=== PATIENT | male | born 1975 ===

== ENCOUNTER 2018-03-04 23:50 | Inpatient (IN) | payer BC, OTHER ==
--- NOTE | 2018-03-05 00:02 | ED PDOC ---
Psych Transfer Clearance - Clearance Statement Clearance Statement: Reviewed vital signs, lab results and transfer papers. Patient clinically stable for psychiatric admission.
[2018-03-05 00:17] VITALS: O2SAT 97
[2018-03-05] MEDS ORDERED: Magnesium Hydroxide Susp 30 ml UD PO PRN (00:27)
[2018-03-05] MEDS ORDERED: DiphenhydrAMINE 50 mg/ml Inj IM PRN (00:27)
[2018-03-05] MEDS ORDERED: Alum-Mag Hydrox-Simethicone Susp (30 mL) PO PRN (00:27)
--- NOTE | 2018-03-05 00:52 | PCM.BM ---
<MildredguevaraGiannivarun Diaz - Last Filed: 03/05/18 00:50> Treatment Plan Problems - Problems identified on initial assessmt Hopelessness/Helplessness Date Initiated: 03/05/18 Time Initiated: 00:51 Assessment reference: NA Status: Active Defensive Coping Date Initiated: 03/05/18 Time Initiated: 00:51 Assessment reference: NA Status: Active Treatment assets and liabiliti Patient Assests: cooperative, ADL independent, physically healthy, negotiates basic needs, cognitively intact Patient Liabilities: relationship conflicts, substance abuse, language/speech - Milieu Protocol Maintain good personal hygiene: daily Encourage regular showers, daily Remind patient to perform daily oral care, daily Assist patient to perform ADL's Conduct patient checks and document Observation sheet: Q15 minutes Maintain personal safety: every shift Educate patient to report safety concerns to staff, every shift Monitor environment for contraband/sharps Medication safety: Monitor for expected outcome, potential side effects: every shift, Assess barriers to learning: every shift, Assess readiness for medication education: every shift <MarioAdriana - Last Filed: 03/05/18 15:34> Treatment assets and liabiliti Patient Assests: adapts well, cooperative, motivated, resourceful, self-reliant , ADL independent, physically healthy, good support system, negotiates basic needs, cognitively intact Patient Liabilities: relationship conflicts, substance abuse, language/speech, other (anger management issues/poor impulse control) Family Contact Family involvement: Family/SO is involved Family contact: Patient agrees to contact, Family has been contacted by patient , Telephone contact initiated by staff Family contact name: Louann(aunt)([phone]) Family contacted how many times per week?: 2 Family contact comment: Straddle Truck Operator placed call to pts aunt to provide information regarding visitation hours and notify family that a letter for pts employer confirming pts current hospitalization will be elft at the nurses station this evening as requested by patient. Straddle Truck Operator provided general information regarding nature of tx provided on 3NP and assured family that policy writer typist will continue providing updates through-out pts stabilization. Pts aunt expressed understanding of the above and reported that both her and pts mother will be brining pt clothing later today. - Goals for Treatment Patient goals for treatment: Patient to continue stabilization on 3NP through medication management and group/supportive therapy to address sxs of depression and eliminate SI. Patient to be encouraged to attend groups regularly to promote self-awareness, sobriety, compliance, and improve insight, anger management, coping skills and self-esteem. Patient to be provided with referral for appropriate level of aftercare to reduce risk of future hospitalizations and ensure safety in the community. Discharge/Continuing Care - Education Needs Education Needs: Family Medication, Family Diagnosis/Disease Process, Family Coping Skills, Family Community resources, Family Aftercare Safety Plan, Patient Medication, Patient Diagnosis/Disease Process, Patient Coping Skills, Patient Anger Management skills, Patient Community resources, Patient Aftercare Safety Plan - Discharge Discharge Criteria: Tolerates medication w/o severe side effects, Free of Suicidal thoughts, Free of agitation, Normal sleep pattern, Ability to care for self, Reduction of target symptoms Discharge to:: Home, With Family, Other (outpatient mental health/substance abuse services) - Treatment Team Participation Patient/Family/SO Statement: 03/05/18 15:39 Patient attended tx team and was able to participate in discussion regarding precursors to hospitalization and tx goals. Pt. reported long hx of poor impulse control. Pt. reported hx of destroying property when angry but denied aggression/violence towards others. Pt. identified recent discord with girlfriend resulting in threat to end long-term relationship as primary stressor leading to admission. Pt. reported being abandoned by both parents at the age of 4 and being raised by grandmother and cousins, resulting in abandonment and anger management issues. Pt. reported childhood hx of outpatient therapy secondary to behavioral disturbances. Pt. reported social ETOH use and recreational cocaine use with recent increase for means of self- medication. Pt. appeared to be minimizing substance abuse. Pt. reported having family/social supports and stable employment. Pt. presented as depressed and anxious and expressed ongoing sleep disturbances. Pt. reported hx of/recent suicidal threats but denied hx of real ideations, attempts or self-injurious behaviors. Psychoeducation regarding nature of tx provided on 3NP provided. Pt. agreeable to medication management and group/supportive therapy. Pt. provided consent for policy writer typist to contact aundavid (Louann [phone]) to provide visitation hours and requested that a letter be provided confirming current hospitalization for employer. Discussed with Family/SO: Yes Was Patient/Family/SO present at Treatment Team Meeting: Yes <Humphrey Ludwig - Last Filed: 03/07/18 14:04> - Diagnosis (1) Depression Status: Acute Interventions: psychotherapy, pharmacotherapy 03/07/18 14:03
[2018-03-05 09:18] LABS: T4 6.85 ug/dl (5.5-11.0)
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
--- NOTE | 2018-03-05 20:22 | CP.PCM.CON ---
History of Present Illness - History of Present Illness History of Present Illness: '42 yo male with no significant PMH admitted to psyche unit because of depression Review of Systems - Review of Systems All systems: reviewed and no additional remarkable complaints except (aside from those mentioned above, 12 point system review were negative by me) Past Patient History - Tetanus Immunizations Tetanus Immunization: Unknown - Past Social History Smoking Status: Light Smoker < 10 Cigarettes Daily Alcohol: Social - CARDIAC Hx Cardiac Disorders: No - PULMONARY Hx Tuberculosis: No - NEUROLOGICAL Hx Neurological Disorder: No - HEENT Hx HEENT Problems: No - RENAL Hx Chronic Kidney Disease: No - ENDOCRINE/METABOLIC Hx Endocrine Disorders: No - HEMATOLOGICAL/ONCOLOGICAL Hx Hepatitis A: No Hx Hepatitis B: No Hx Hepatitis C: No Hx Human Immunodeficiency Virus (HIV): No - INTEGUMENTARY Hx Dermatological Problems: No - MUSCULOSKELETAL/RHEUMATOLOGICAL Hx Musculoskeletal Disorders: No - GASTROINTESTINAL Hx Gastrointestinal Disorders: No - GENITOURINARY/GYNECOLOGICAL Hx Genitourinary Disorders: No - PSYCHIATRIC Hx Depression: Yes Hx Substance Use: Yes - SURGICAL HISTORY Hx Surgeries: No - ANESTHESIA Hx Anesthesia: No Hx Anesthesia Reactions: No Hx Malignant Hyperthermia: No Has any member of the family had a problem w/ anesthesia?: No Meds Allergies/Adverse Reactions: Allergies Allergy/AdvReac Type Severity Reaction Status Date / Time No Known Allergies Allergy Verified 03/04/18 23:56 - Medications Medications: Current Medications Acetaminophen (Tylenol 325mg Tab) 650 mg PO Q4 PRN PRN Reason: pain level 4-7 Al Hydrox/Mg Hydrox/Simethicone (Maalox Plus 30 Ml) 30 ml PO Q4 PRN PRN Reason: Dyspepsia Aripiprazole (Abilify) 5 mg PO DAILY KRISTYN Last Admin: 03/05/18 16:50 Dose: 5 mg Diphenhydramine HCl (Benadryl) 50 mg IM Q6 PRN PRN Reason: Extrapyramidal S/S Unable PO Diphenhydramine HCl (Benadryl) 50 mg PO Q6 PRN PRN Reason: Extrapyramidal Symptoms Diphenhydramine HCl (Benadryl) 50 mg PO HS PRN PRN Reason: Sleep Haloperidol (Haldol) 5 mg PO Q4 PRN PRN Reason: Agitation Haloperidol Lactate (Haldol) 5 mg IM Q4 PRN PRN Reason: Agitation, Unable to Take PO Hydroxyzine Pamoate (Vistaril) 50 mg PO Q8 PRN PRN Reason: Anxiety Lorazepam (Ativan) 1 mg IM Q8H PRN PRN Reason: Anxiety/Agitation,Unable PO Magnesium Hydroxide (Milk Of Magnesia) 30 ml PO HS PRN PRN Reason: Constipation Trazodone HCl (Desyrel) 50 mg PO HS KRISTYN Physical Exam - Constitutional Appears: No Acute Distress - Head Exam Head Exam: ATRAUMATIC - Eye Exam Eye Exam: absent: Scleral icterus - ENT Exam ENT Exam: Mucous Membranes Moist - Neck Exam Neck exam: Negative for: Meningismus - Respiratory Exam Respiratory Exam: absent: Rales, Rhonchi, Wheezes, Respiratory Distress - Cardiovascular Exam Cardiovascular Exam: REGULAR RHYTHM, +S1, +S2 - GI/Abdominal Exam GI & Abdominal Exam: Soft. absent: Tenderness - Rectal Exam Rectal Exam: Deferred - Extremities Exam Extremities exam: Negative for: pedal edema - Back Exam Back exam: NORMAL INSPECTION - Neurological Exam Neurological exam: Alert, Oriented x3 - Psychiatric Exam Psychiatric exam: Normal Affect - Skin Skin Exam: Dry, Intact Results - Vital Signs Recent Vital Signs: Last Vital Signs Temp 97.9 F 03/05/18 09:00 Pulse 69 03/05/18 09:00 Resp 18 03/05/18 09:00 BP 137/89 03/05/18 09:00 Pulse Ox 97 03/04/18 23:56 - Labs Labs: Laboratory Results - last 24 hr 03/05/18 03/05/18 03/05/18 08:30 08:30 08:30 Hemoglobin A1c 5.4 Triglycerides 115 Cholesterol 166 LDL Cholesterol Direct 57 HDL Cholesterol 66 Thyroxine (T4) 6.85 TSH 3rd Generation 1.17 RPR Nonreactive Assessment & Plan (1) Depression Status: Acute Comment: psyche is managing
--- NOTE | 2018-03-06 15:52 | PCM.PYCHPN ---
Psychiatric Progress Note - Psychiatric Progress Note Patient seen today, length of contact: pt evaluated discussed with team chart reviewed Patient Chief Complaint: I know I need to control my temper Problems Identified/Issues Discussed: pt evaluated, reported improved sleep with trazodone, continues to feel down due to the current conflict with his girl friend , pt showing insight, reporting being remorseful about his explosive behavior, discussed importance of anger management therapy on discharge, also discussed increasing dose of abilify to 10mg no reported side effects, encouraged pt to attend groups, motivational therapy provided in reference to cocaine and alcohol abuse, and possible effects on mood pt denied any current thoughts of self harm, denied perceptual disturbances Medical Problems: no hx of previous hospitalizations or treatment DSM 5 Symptoms Update: impulse control disorder Medication Change: Yes (increase abilify) Medical Record Reviewed: Yes Mental Status Examination - Cognitive Function Orientation: Person, Place, Situation, Time Memory: Intact Attention: WNL Concentration: WNL Association: WNL Fund of Knowledge: WN Decription of patient's judgement and insights: partial insight , fair judgment - Mood Mood: Depressed, Anxious - Affect Affect: Constricted, Depressed - Speech Speech: Appropriate - Formal Thought Process Formal Thought Process: Circumstantial Psychotic Thoughts and Behaviors: pt denied perceptual disurbances, non elicited - Suicidal Ideation Suicidal Ideation: No - Homicidal Ideation Homicidal Ideation: No Goal/Treatment Plan - Goal/Treatment Plan Need for Continued Stay: Severe depression anxiety, Discharge may exacerbated symptoms Progress Toward Problem(s) and Goals/Treatment Plan: increase abilify to 10mg trazodone 50mg qhs for insomnia motivational, group and supportive therapy Estimated Date of D/C: 03/09/18
--- NOTE | 2018-03-07 14:10 | PCM.PYCHPN ---
Psychiatric Progress Note - Psychiatric Progress Note Patient seen today, length of contact: pt evaluated discussed with team chart reviewed Patient Chief Complaint: I feel better and I am sleeping better Problems Identified/Issues Discussed: pt evaluated, reported better mood with decreased irritability, presenting with brighter affect, pt showing insight into illness, stated improved temper control with abilify, no reported side effects , attending groups, and interacting with other peers pt denied any current thoughts of self harm, denied perceptual disturbances Medical Problems: no hx of previous hospitalizations or treatment DSM 5 Symptoms Update: impulse control disorder alco Medication Change: No Medical Record Reviewed: Yes Mental Status Examination - Cognitive Function Orientation: Person, Place, Situation, Time Memory: Intact Attention: WNL Concentration: WNL Association: [facility] Fund of Knowledge: [facility] Decription of patient's judgement and insights: partial insight , fair judgment - Mood Mood: Anxious - Affect Affect: Constricted - Speech Speech: Appropriate - Formal Thought Process Formal Thought Process: No Impairment Psychotic Thoughts and Behaviors: pt denied perceptual disurbances, non elicited - Suicidal Ideation Suicidal Ideation: No - Homicidal Ideation Homicidal Ideation: No Goal/Treatment Plan - Goal/Treatment Plan Need for Continued Stay: Severe depression anxiety, Discharge may exacerbated symptoms Progress Toward Problem(s) and Goals/Treatment Plan: continue abilify 10mg trazodone 50mg qhs for insomnia motivational, group and supportive therapy Estimated Date of D/C: 03/09/18
[2018-03-07 18:11] VITALS: RESP 18
[2018-03-08 09:06] VITALS: BP 133/86; PULSE 64; TEMP 97.9
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
== END 2018-03-08 12:16 | disposition home or self-care (01) | DRG 426 ==
LOC: H.ER 23:50 → H.PSYCH 03-05 00:01
PROVIDERS: ADMIT Psychiatry & Neurology Psychiatry; ATTEND Psychiatry & Neurology Psychiatry
PROC: GZHZZZZ Group Psychotherapy (ICD-10-PCS; principal; 2018-03-05)
PROC: GZ58ZZZ Individual Psychotherapy, Cognitive-Behavioral (ICD-10-PCS; 2018-03-05)
PROC: HZ52ZZZ Individual Psychotherapy for Substance Abuse Treatment, Cognitive-Behavioral (ICD-10-PCS; 2018-03-05)
DX: F32.9 Major depressive disorder, single episode, unspecified (principal); F14.10 Cocaine abuse, uncomplicated; F63.9 Impulse disorder, unspecified; F10.10 Alcohol abuse, uncomplicated; G47.00 Insomnia, unspecified; F17.210 Nicotine dependence, cigarettes, uncomplicated